=== PATIENT | male | born 1955 | race Caucasian/White ===

== ENCOUNTER 2021-02-18 02:35 | Day surgery (SDC) | payer MEDICARE, SELFPAY ==
[2021-02-04 13:48] VITALS: BMI 27.1
[2021-02-18 11:36] VITALS: BP 153/94; PULSE 76; RESP 18; TEMP 36.1; O2SAT 98
[2021-02-18] MEDS: LACTATED RINGERS 1,000 ML 150 ML IV CONT (11:40)
--- NOTE | 2021-02-18 12:30 | WPDGICN ---
Assessment and Plan Assessment and plan (1) Encounter for screening colonoscopy: Code(s): Z12.11 - Encounter for screening for malignant neoplasm of colon Status: Acute Assessment and Plan: Patient presents for screening colonoscopy. It has been 11 years since last exam. He appears to be at average risk for colon polyps. Further recommendations will be given after endoscopy. (2) Dyspepsia: Code(s): R10.13 - Epigastric pain Status: Acute Assessment and Plan: Patient complains of indigestion after drinking peers. Consistent with acid indigestion. Plan is for a trial of Pepcid or Tagamet on a regular basis. If symptoms persist despite this medication in follow-up for EGD is advised. GI Consult Note Consult date/time: 02/18/21 12:30 HPI: Adriel Viera is a 66 year old male Presents for screening colonoscopy. Patient's current weight appetite bowel movements are normal. He denies abdominal pain. He has had no bleeding. Family history is noncontributory last colonoscopy was 11 years ago. Patient presents today for follow-up screening colonoscopy. Patient does report occasional left upper quadrant indigestion after drinking beers. He has tried no medications for this this only occurs intermittently. He has had no weight loss or bleeding. Review of Systems Review of Systems: All systems reviewed & are unremarkable except as noted in HPI and below PMFSH Social History Social History Smoking status: Never smoker Alcohol intake: current Drinks per week: 10 Living arrangements: with family Spiritual care concerns: No Meds Home Medications and Allergies Home Medications Medication Instructions Recorded Confirmed Type aspirin [Adult Low Dose Aspirin] 81 mg PO DAILY 02/04/21 02/18/21 History cholecalciferol (vitamin D3) 25 mcg PO DAILY 02/04/21 02/18/21 History [Vitamin D3] hydrochlorothiazide 25 mg PO DAILY 02/04/21 02/18/21 History lisinopril 40 mg PO DAILY 02/04/21 02/18/21 History metoprolol succinate 50 mg PO DAILY 02/04/21 02/18/21 History omega-3 fatty acids [Fish Oil] 1,000 mg PO DAILY 02/04/21 02/18/21 History omeprazole 40 mg PO DAILY PRN 02/04/21 02/18/21 History simvastatin 40 mg PO DAILY 02/04/21 02/18/21 History vitamin E 100 unit PO DAILY 02/04/21 02/18/21 History Allergies Allergy/AdvReac Type Severity Reaction Status Date / Time No Known Allergies Allergy Unverified 02/18/21 11:35 Vital Signs Vital Signs - 24 hr 02/18/21 11:36 Temperature 96.9 F L Pulse Rate 76 Respiratory Rate 18 Blood Pressure 153/94 H Pulse Oximetry 98 Exam Narrative: Physical exam reveals patient be alert. Vital signs stable. HEENT exam is unremarkable. Patient is anicteric. Lungs are clear to auscultation and percussion. Heart is without murmur or extra sounds. Abdominal exam bowel sounds are present soft nontender with no hepatosplenomegaly. Digital external rectal exam is normal.
--- NOTE | 2021-02-18 12:50 | WPDANESEPPF ---
Anes - Initial Pre Proc Eval Procedure: Operation Date: 02/18/21 13:00 Proposed Procedures p Screening Colonoscopy - Malik Riddle MD Date/Time: 02/18/21 12:50 Surgeon: Malik Riddle MD Pre Op Diagnosis: neoplasm screening Patient Data Age: 66 Gender: M Height: 1.83 m Weight: 98.9 kg Last Vital Signs Temp 96.9 F L 02/18/21 11:36 Pulse 76 02/18/21 11:36 Resp 18 02/18/21 11:36 BP 153/94 H 02/18/21 11:36 Pulse Ox 98 02/18/21 11:36 Allergies Allergy/AdvReac Type Severity Reaction Status Date / Time No Known Allergies Allergy Unverified 02/18/21 11:35 Home Medications Medication Instructions Recorded Confirmed Type aspirin [Adult Low Dose Aspirin] 81 mg PO DAILY 02/04/21 02/18/21 History cholecalciferol (vitamin D3) 25 mcg PO DAILY 02/04/21 02/18/21 History [Vitamin D3] hydrochlorothiazide 25 mg PO DAILY 02/04/21 02/18/21 History lisinopril 40 mg PO DAILY 02/04/21 02/18/21 History metoprolol succinate 50 mg PO DAILY 02/04/21 02/18/21 History omega-3 fatty acids [Fish Oil] 1,000 mg PO DAILY 02/04/21 02/18/21 History omeprazole 40 mg PO DAILY PRN 02/04/21 02/18/21 History simvastatin 40 mg PO DAILY 02/04/21 02/18/21 History vitamin E 100 unit PO DAILY 02/04/21 02/18/21 History Patient hx anesthesia problems: none Family hx anesthesia problems: none Results Review: All pre-operative results and documents have been reviewed as part of the pre-operative evaluation. [facility] Past Medical History Medical History (Updated 02/18/21 @ 12:47 by Rodger Whitehead MD) GERD (gastroesophageal reflux disease) Hyperlipidemia Hypertension Social History Social History Smoking status: Never smoker Alcohol intake: current Drinks per week: 10 Living arrangements: with family Spiritual care concerns: No Anes - Eval Final PreProcedure Day of Procedure 02/18/21 12:50 Patient weight: overweight Heart: regular rate and rhythm Lungs: clear to auscultation Airway: Mallampati scale class II Neurological: alert and oriented Last oral intake: >/= 8 hours ASA classification: II Emergent: no Anesthetic plan: proceed Anesthesia type and monitoring: general GIVS and standard monitoring Results Review: All pre-operative results and documents have been reviewed as part of the pre-operative evaluation. Informed Consent: The patient's anesthetic plan and its attendant risks and benefits were discussed with the patient/family/POA. Questions were solicited and answers provided to the satisfaction of the patient/family/POA.
[2021-02-18 13:36] VITALS: BP 122/77; PULSE 69; RESP 15; O2SAT 95
[2021-02-18 13:46] VITALS: BP 127/77; PULSE 74; RESP 18; O2SAT 100
[2021-02-18 13:56] VITALS: BP 124/76; PULSE 64; RESP 19; O2SAT 100
== END 2021-02-18 13:58 | disposition home or self-care (01) ==
PROVIDERS: PCP Internal Medicine Geriatric Medicine; Visit Provider Internal Medicine Gastroenterology
PROC: 0DJD8ZZ Inspection of Lower Intestinal Tract, Via Natural or Artificial Opening Endoscopic (ICD-10-PCS; CPT 45378; principal; 2021-02-18 13:00)
DX: Z12.11 Encounter for screening for malignant neoplasm of colon (principal); D12.2 Benign neoplasm of ascending colon; D12.3 Benign neoplasm of transverse colon; K64.8 Other hemorrhoids; K21.9 Gastro-esophageal reflux disease without esophagitis; I10 Essential (primary) hypertension; E78.5 Hyperlipidemia, unspecified; Z79.82 Long term (current) use of aspirin
CPT/HCPCS: 45385; 88305; J2704; J7120

== ENCOUNTER 2021-11-26 10:26 | Emergency (ER) | payer MEDICARE, SELFPAY ==
[2021-11-26] VITALS (9 sets, daily range): BP systolic 140–163; BP diastolic 62–101; PULSE 54–63; RESP 12–16; TEMP 36.4; O2SAT 96
--- NOTE | ~2021-11-26 | XR_ITS ---
EXAMINATION: XR chest 2V DATE: 11/26/2021 10:52 INDICATION: Chest pain TECHNIQUE: PA and lateral views of the chest are obtained. COMPARISON: None available FINDINGS: The lungs are free of acute opacities. No pleural effusion or pneumothorax. The cardiomedia stinal silhouette is normal. There is mild thoracic spondylosis. IMPRESSION: 1. No acute cardiopulmonary abnormality. Reviewed, dictated and finalized at location B.
--- NOTE | 2021-11-26 10:27 | ECG_ITS ---
Measurements Intervals [place] Rate: 66 P: 24 UT: 161 QRS: -46 QRSD: 136 T: 13 QT: 388 QTc: 407 Interpretive Statements SINUS RHYTHM RIGHT BUNDLE BRANCH BLOCK LEFT ANTERIOR FASCICULAR BLOCK ABNORMAL ECG COMPARED TO ECG 05/27/2018 09:04:48 RIGHT BUNDLE-BRANCH BLOCK NOW PRESENT LEFT ANTERIOR FASCICULAR BLOCK NOW PRESENT LEFT VENTRICULAR HYPERTROPHY NOW PRESENT Electronically Signed On 11-26-2021 12:40:49 CDT by Jeremias Galan D.O.
[2021-11-26 10:50] LABS: Basophils Absolute Auto 0.1 K/mm3 (0.0-0.1); Basophils Percent Auto 0.7 % (0.2-1.2); Eosinophils Absolute Auto 0.1 K/mm3 (0-0.3); Eosinophils Percent Auto 1.7 % (0-4.4); Hematocrit 43.6 % (42.0-52.0); Hemoglobin 14.7 g/dL (14.0-18.0); Immature Granulocyte Absolute 0.03 K/mm3 (0.00-0.031); Immature Granulocyte Percent A 0.4 % (0-0.5); Lymphocytes Absolute Auto 2.38 K/mm3 (0.9-3.2); Lymphocytes Percent Auto 33.1 % (18.3-44.2); Mean Corpuscular HGB Conc 33.7 g/dl (32-36); Mean Corpuscular Hemoglobin 31.5 pg (26-34); Mean Corpuscular Volume 93.6 fl (80-100); Mean Platelet Volume 9.3 fl (7.4-10.4); Monocytes Absolute Auto 0.7 K/mm3 (0.1-0.6); Monocytes Percent Auto 9.6 % (2.6-8.5); Neutrophils Absolute Auto 3.9 K/mm3 (1.3-6.7); Neutrophils Percent Auto 54.5 % (45.5-73.1); Platelet Count Result 237 k/mm3 (150-375); Red Blood Count 4.66 M/mm3 (4.6-6.20); Red Cell Distribution Width 12.3 % (11.5-14.5); White Blood Count 7.2 K/mm3 (4.5-10.0)
[2021-11-26 10:55] LABS: INR 1.1; Prothrombin Time 13.3 Seconds (11.1-14.7)
[2021-11-26 10:56] LABS: Partial Thromboplastin Time 27.5 SECONDS (22.3-36.8)
[2021-11-26 10:58] LABS: Alanine Aminotransferase 30 U/L (6-50); Albumin Level 4.8 g/dL (3.5-5.1); Alkaline Phosphatase 57 U/L (38-126); Anion Gap 5 mmol/L (8-16); Aspartate Amino Transferase 28 U/L (17-59); Bilirubin,Total 1.3 mg/dL (0.2-1.3); Blood Urea Nitrogen 12 mg/dL (9-20); Calcium 9.1 mg/dL (8.4-10.2); Carbon Dioxide 23 mmol/L (22-30); Chloride 110 mmol/L (98-107); Estimated CRCL calculation 76 ml/min; Estimated Glomerular Filt Rate > 60; Glucose 112 mg/dL (65-110); Lipase 75 U/L (23-300); Potassium 4.1 mmol/L (3.4-5.0); Sodium 138 mmol/L (137-145)
[2021-11-26 11:08] LABS: Troponin I < 0.012 ng/mL (0.000-0.034)
--- NOTE | 2021-11-26 12:04 | ED.CHESTPAIN ---
HPI - Chest Pain General Chief Complaint: Chest Pain Stated Complaint: chest pain Time Seen by Provider: 11/26/21 12:04 History of Present Illness HPI narrative: Patient is a 66-year-old male with a history of hypertension, hyperlipidemia, GERD presenting with epigastric pain. Patient states that for the last several months he has had epigastric pain that sometimes radiates into his chest and into his back. States that he notices it is often worse in the morning and improves after he takes his morning walk. States it also improves with eating though certain foods, like coffee and beer, make it worse. States he has been taking his Prilosec as prescribed. States that he called his doctor today because his has been on him to get this checked out and his doctor recommended he come in for evaluation. Currently, he denies any complaint. He denies current chest pain. He denies shortness of breath, palpitations, lightheadedness, leg swelling. He denies headaches, fevers, cough, numbness or weakness, nausea or vomiting, diarrhea, dysuria. Related Data Home Medications Medication Instructions Recorded Confirmed aspirin 81 mg tablet 81 mg PO DAILY 02/04/21 02/18/21 cholecalciferol (vitamin D3) 25 25 mcg PO DAILY 02/04/21 02/18/21 mcg (1,000 unit) tablet (Vitamin D3) hydrochlorothiazide 25 mg tablet 25 mg PO DAILY 02/04/21 02/18/21 lisinopril 40 mg tablet 40 mg PO DAILY 02/04/21 02/18/21 metoprolol succinate 50 mg 50 mg PO DAILY 02/04/21 02/18/21 tablet,extended release 24 hr omega-3 fatty acids 1,000 mg PO DAILY 02/04/21 02/18/21 omeprazole 40 mg capsule,delayed 40 mg PO DAILY PRN Indigestion 02/04/21 02/18/21 release simvastatin 40 mg tablet 40 mg PO DAILY 02/04/21 02/18/21 vitamin E 100 unit tablet 100 unit PO DAILY 02/04/21 02/18/21 Allergies Allergy/AdvReac Type Severity Reaction Status Date / Time No Known Allergies Allergy Unverified 11/26/21 10:38 Review of Systems Review of Systems: All systems reviewed & are unremarkable except as noted in HPI and below PMFSH Past Medical History Medical History GERD (gastroesophageal reflux disease) Hyperlipidemia Hypertension Social History Social History Smoking status: Never smoker Alcohol intake: current Drinks per week: 10 Spiritual care concerns: No Exam Narrative: GENERAL: Well-appearing, well-nourished, and in no acute distress. HEAD: Normocephalic, atraumatic. EYES: PERRLA and EOMI. ENT: Nares clear, no rhinorrhea or epistaxis. Mucous membranes moist. NECK: Supple. CHEST: Clear to auscultation. No respiratory distress. HEART: Regular rate and rhythm. No murmur heard. Normal peripheral pulses. ABDOMEN: Soft, nontender, nondistended, normal active bowel sounds. EXTREMITIES: Normal range of motion. No edema. SKIN: Warm, dry, no rash. NEURO: No focal deficits. Alert and oriented x3. PSYCH: Normal mood and affect. Course Course Emergency Course: Patient is a 66-year-old male with history as above presenting with intermittent epigastric pain. Patient is hypertensive, otherwise vitals are within normal limits. Patient is well-appearing and in no acute distress. Exam is unremarkable. History sounds very GI in nature given the several month history, intermittent nature of the symptoms related to food intake. EKG per my interpretation shows normal sinus rhythm, left axis deviation, right bundle branch block, no ST elevations or depressions. Labs are unremarkable. Initial troponin is undetectable. Chest x-ray shows no acute abnormalities. 3-hour troponin is also undetectable. Patient continues to feel well. Patient has a heart score of 5 given his age and risk factors but this current episode sounds GI in nature and his lab work is reassuring. He actually denies any chest pain or shortness of breath and states that activity imp
[2021-11-26 13:41] LABS: Troponin I < 0.012 ng/mL (0.000-0.034)
== END 2021-11-26 15:02 | disposition home or self-care (01) ==
PROVIDERS: Emergency Medicine; Emergency Provider Emergency Medicine; PCP Internal Medicine Geriatric Medicine
DX: R10.13 Epigastric pain (principal); K21.9 Gastro-esophageal reflux disease without esophagitis; I10 Essential (primary) hypertension; E78.5 Hyperlipidemia, unspecified; Z79.82 Long term (current) use of aspirin
CPT/HCPCS: 36415; 71046; 80053; 83690; 84484; 85025; 85610; 85730; 93005; 99284

== ENCOUNTER 2023-06-03 04:51 | Emergency (ER) | payer MEDICARE, SELFPAY ==
--- NOTE | ~2023-06-03 | XR_ITS ---
Portable chest x-ray Comparison: 11/26/2021 Clinical History: Chest pain Findings: Lungs are clear, without focal consolidation or pleural effusion. Possible COPD. Cardiome diastinal silhouette is stable. Bones and soft tissues are unremarkable. Impression: Clear lungs. Possible COPD. Reviewed, dictated and finalized at location . Impression: Clear lungs. Possible COPD.
--- NOTE | 2023-06-03 04:52 | ECG_ITS ---
Measurements Intervals [place] Rate: 74 P: 39 [place]: 164 QRS: -49 QRSD: 134 T: 27 QT: 385 QTc: 427 Interpretive Statements SINUS RHYTHM WITH OCCASIONAL VENTRICULAR PREMATURE COMPLEXES RIGHT BUNDLE BRANCH BLOCK LEFT ANTERIOR FASCICULAR BLOCK VOLTAGE CRITERIA FOR LVH CANNOT RULE OUT SEPTAL INFARCT, AGE INDETERMINATE BASELINE ARTIFACT- I, II, AVR, V2-V3 ABNORMAL ECG COMPARED TO ECG 11/26/2021 10:33:11 NO SIGNIFICANT CHANGES Electronically Signed On 06-03-2023 6:25:34 CDT by Jeremias Galan D.O.
[2023-06-03 04:54] VITALS: BP 150/98; PULSE 77; RESP 16; TEMP 36.7; O2SAT 97
[2023-06-03 05:02] VITALS: O2SAT 97
[2023-06-03 05:08] LABS: Basophils Absolute Auto 0.1 K/mm3 (0.0-0.1); Basophils Percent Auto 0.7 % (0.2-1.2); Eosinophils Absolute Auto 0.2 K/mm3 (0-0.3); Hematocrit 46.8 % (42.0-52.0); Hemoglobin 15.9 g/dL (14.0-18.0); Immature Granulocyte Absolute 0.02 K/mm3 (0.00-0.031); Immature Granulocyte Percent A 0.2 % (0-0.5); Lymphocytes Absolute Auto 3.78 K/mm3 (0.9-3.2); Lymphocytes Percent Auto 42.6 % (18.3-44.2); Mean Corpuscular Hemoglobin 31.4 pg (26-34); Mean Corpuscular Volume 92.3 fl (80-100); Mean Platelet Volume 9.3 fl (7.4-10.4); Monocytes Percent Auto 10.9 % (2.6-8.5); Neutrophils Absolute Auto 3.9 K/mm3 (1.3-6.7); Neutrophils Percent Auto 43.6 % (45.5-73.1); Platelet Count Result 239 k/mm3 (150-375); Red Blood Count 5.07 M/mm3 (4.6-6.20); White Blood Count 8.9 K/mm3 (4.5-10.0)
[2023-06-03] MEDS: ASPIRIN 81 MG CHEWABLE TABLET 324 MG PO (05:08)
--- NOTE | 2023-06-03 05:08 | ED.GENADULT ---
HPI - General Adult General Chief complaint: Chest Pain Stated complaint: chest pain Time Seen by Provider: 06/03/23 05:07 History of Present Illness HPI narrative: this is a 68-year-old male history of hypertension high cholesterol presenting for chest discomfort x1 month. Patient says he has been having a stabbing pain beneath his left pectoral that radiates up into his left chest neck and back for the last 1 month. It comes and goes up to 10 times per day and typically last 20 minutes at a time. It is improved by distraction. There is no exertional component. He can reproduce the pain when he moves. patient came to the ER because he was having pain that was worse than usual that radiated to his back and he had some numbness in his left hand when he woke. The numbness has since resolved. Patient denies fever chills shortness of breath abdominal pain, exertional component or vomiting. No lower extremity edema. Related Data Home Medications Medication Instructions Recorded Confirmed aspirin 81 mg tablet 81 mg PO DAILY 02/04/21 02/18/21 cholecalciferol (vitamin D3) 25 25 mcg PO DAILY 02/04/21 02/18/21 mcg (1,000 unit) tablet (Vitamin D3) hydrochlorothiazide 25 mg tablet 25 mg PO DAILY 02/04/21 02/18/21 lisinopril 40 mg tablet 40 mg PO DAILY 02/04/21 02/18/21 metoprolol succinate 50 mg 50 mg PO DAILY 02/04/21 02/18/21 tablet,extended release 24 hr omega-3 fatty acids 1,000 mg PO DAILY 02/04/21 02/18/21 omeprazole 40 mg capsule,delayed 40 mg PO DAILY PRN Indigestion 02/04/21 02/18/21 release simvastatin 40 mg tablet 40 mg PO DAILY 02/04/21 02/18/21 vitamin E 100 unit tablet 100 unit PO DAILY 02/04/21 02/18/21 Allergies Allergy/AdvReac Type Severity Reaction Status Date / Time No Known Allergies Allergy Verified 06/03/23 05:21 [facility] Past Medical History Medical History GERD (gastroesophageal reflux disease) Hyperlipidemia Hypertension Social History Social History Smoking status: Never smoker Alcohol intake: current Drinks per week: 10 Living arrangements: with family Spiritual care concerns: No Exam Narrative: APPEARANCE: No apparent distress. Head: atraumatic. EYES: EOMI, NOSE: Atraumatic NECK: Trachea midline RESPIRATORY: No increased rate of breathing, clear to auscultatio CARDIOVASCULAR: RRR, no peripheral edema ABDOMINAL: Non-distended soft nontender no guarding rebound MUSCULOSKELETAl: no overlying skin changes of her chest her back, no tenderness on palpation NEURO: Alert. Moving 4/4 extremities SKIN:: Warm, dry. Normal color PSYCHIATRIC: Normal affect Course Vital Signs Vital signs: Vital Signs Temperature 98.1 F 06/03/23 04:54 Pulse Rate 77 06/03/23 04:54 Respiratory Rate 16 06/03/23 04:54 Blood Pressure 150/98 H 06/03/23 04:54 Pulse Oximetry 97 06/03/23 04:54 Oxygen Delivery Room Air 06/03/23 04:54 Temperature 98.1 F 06/03/23 04:54 Pulse Rate 74 06/03/23 05:20 Respiratory Rate 12 06/03/23 05:20 Blood Pressure 136/81 06/03/23 05:20 Pulse Oximetry 95 06/03/23 05:20 Oxygen Delivery Room Air 06/03/23 05:02 Medical Decision Making MDM Narrative Medical decision making narrative: -Course: 68-year-old male presenting with intermittent chest pain x1 month. Patient is able to reproduce the pain with specific movements. Chest pain workup was negative with 2 undetectable troponins and normal EKG. Patient pain started to resolve once he arrived in the emergency department and is pain-free at time of discharge. Patient did receive nitro but his pain had already improved by time he received it. Unlikely that this is cardiac pain. The patient will be discharged with primary care follow-up return precautions. -DDX includes but is not limited to: ACS, musculoskeletal pain, pleurisy, PE, pneumonia -Co-morbidit
[2023-06-03 05:16] VITALS: BP 134/82; PULSE 73; RESP 13; O2SAT 96
[2023-06-03] MEDS: NITROGLYCERIN SL 0.4 MG TABLET SUBLINGUAL (05:17)
[2023-06-03 05:20] VITALS: BP 136/81; PULSE 74; RESP 12; O2SAT 95
[2023-06-03 05:21] LABS: Prothrombin Time 13.2 Seconds (11.1-14.7)
[2023-06-03 05:22] LABS: Partial Thromboplastin Time 28.4 Seconds (22.3-36.8)
[2023-06-03 05:24] LABS: Alanine Aminotransferase 31 U/L (6-50); Albumin Level 4.5 g/dL (3.5-5.1); Alkaline Phosphatase 66 U/L (38-126); Anion Gap 7 mmol/L (8-16); Aspartate Amino Transferase 30 U/L (17-59); Blood Urea Nitrogen 21 mg/dL (9-20); Calcium 9.4 mg/dL (8.4-10.2); Carbon Dioxide 25 mmol/L (22-30); Chloride 103 mmol/L (98-107); Estimated CRCL calculation 43 ml/min; Estimated Glomerular Filt Rate > 60; Glucose 148 mg/dL (65-110); Lipase 142 U/L (23-300); Sodium 135 mmol/L (137-145)
[2023-06-03 05:36] LABS: Troponin I < 0.012 ng/mL (0.000-0.034)
--- NOTE | 2023-06-03 05:47 | PC.NURSE ---
This RN added on BNP and d-dimer in lab. Spoke to Amy.
[2023-06-03 06:03] LABS: NT Pro B Type Natriuretic Pept < 20 pg/mL (19.9-100)
[2023-06-03 06:31] LABS: D Dimer 0.36 ug/mL (<0.48)
[2023-06-03 07:01] VITALS: BP 138/85; PULSE 71; RESP 16; O2SAT 95
== END 2023-06-03 07:03 | disposition home or self-care (01) ==
PROVIDERS: Emergency Provider Emergency Medicine; PCP Internal Medicine Geriatric Medicine
DX: R07.89 Other chest pain (principal); E78.00 Pure hypercholesterolemia, unspecified; I10 Essential (primary) hypertension; K21.9 Gastro-esophageal reflux disease without esophagitis; Z79.82 Long term (current) use of aspirin
CPT/HCPCS: 36415; 71045; 80053; 83690; 83880; 84484; 85025; 85380; 85610; 85730; 93005; 99284; A9270

== ENCOUNTER 2023-10-04 07:35 | Outpatient (CLI) | payer MEDICARE, SELFPAY ==
--- NOTE | ~2023-10-04 | US_ITS ---
Duplex Carotid Doppler 10/04/2023 8:15 CDT Ordering provider: Freddy HanleyMD INDICATION: 68 years Male presents with . carotid Bruit . COMPARISON: None TECHNIQUE: Duplex carotid ultrasound was obtained with spectral analysis. FINDINGS: Right carotid: The right common carotid artery is patent. The right common carotid artery peak systo lic velocity is 97.7 cm/sec. Mild atherosclerotic plaque at the right carotid bulb. Peak systolic v elocity in the right internal carotid artery is 84.5 cm/sec. The end diastolic velocity EDV of the ri ght internal carotid artery is 33.9. The ICA/CCA ratio is 0.9. External carotid artery PSV is 116.7 T he right vertebral artery flow is antegrade. Vertebral PSV is 55.9 cm/s. Left carotid: The left common carotid artery is patent. The left common carotid artery peak systolic velocity is 76 cm/sec. Mild atherosclerotic plaque at the left carotid bulb. Peak systolic velocit y in the left internal carotid artery is 77.2 cm/sec. ICA EDV areas 29.3 cm/s. ECA PSV is 94.4 cm/S. The ICA/CCA ratio is 1. The left vertebral artery is antegrade. PSV of vertebral artery is 39.6 IMPRESSION: 1. Minimal atherosclerotic changes in the bulb bilaterally. No significant stenosis seen. 2. Antegrade flow in the bilateral vertebral arteries. Reviewed, dictated and finalized at location A. IMPRESSION: 1. Minimal atherosclerotic changes in the bulb bilaterally. No significant sten osis seen. 2. Antegrade flow in the bilateral vertebral arteries.
--- NOTE | ~2023-10-04 | US_ITS ---
EXAMINATION: US aorta [facility] DATE: 10/04/2023 08:40 INDICATION: Abdominal aortic aneurysm screening TECHNIQUE: Grayscale, color Doppler, and pulsed Doppler images of the aorta and common iliac arteries were obtained. COMPARISON: None. FINDINGS: The proximal aorta measures 2.9. The mid aorta measures 2.1. The distal aorta measures 1.9. The right common iliac artery measures 1.3. The left common iliac artery measures 1.3. IMPRESSION: 1. Normal caliber abdominal aorta Reviewed, dictated and finalized at location A.
== END 2023-10-04 07:36 | disposition home or self-care (01) ==
PROVIDERS: PCP Internal Medicine Geriatric Medicine; Visit Provider Internal Medicine Geriatric Medicine
DX: R09.89 Other specified symptoms and signs involving the circulatory and respiratory systems (principal); Z13.6 Encounter for screening for cardiovascular disorders
CPT/HCPCS: 76706; 93880

== ENCOUNTER 2023-12-13 01:32 | Emergency (ER) | payer MEDICARE, SELFPAY ==
--- NOTE | ~2023-12-13 | CT_ITS ---
Clinical Indication: Chest pain, abdominal pain CT Scan of the Chest, Abdomen, and Pelvis with Contrast: Technique: Contiguous sections were acquired throughout the chest, abdomen, and pelvis after intraven ous administration of 100 cc of Omnipaque 350. Dose reduction technique was used on this scan by petar cortes automated exposure control and iterative reconstruction technique. The dose-length product (DL P) was 1845.97 mGy-cm. Findings: There is no evidence of any significant mediastinal, hilar or axillary lymphadenopathy. The mediastin al soft tissues appear normal. No pulmonary embolus. No aortic aneurysm or dissection. There is no evidence of pleural or pericardial effusion. The lungs are clear. No pulmonary nodules or infiltrates are noted. The liver, spleen, pancreas, adrenals and kidneys are within normal limits. Cholecystectomy clips are present. There are atherosclerotic calcifications of the aorta. There is a single prominent, enhanci ng lymph node just anterior to the IVC measuring 14 mm in short axis (series 5 axial image 97), nonsp ecific.. No bowel obstruction or bowel wall thickening. There is no evidence to suggest acute appendicitis. Urinary bladder is unremarkable. No pelvic mass seen. No ascites. Fat-containing left inguinal hernia noted. Impression: Single mildly prominent lymph node just anterior to the IVC, as above, nonspecific. Fat-containing left inguinal hernia. No other significant findings. Reviewed, dictated and finalized at [facility]. Impression: Single mildly prominent lymph node just anterior to the IVC, as above, nonspeci fic. Fat-containing left inguinal hernia. No other significant findings.
[2023-12-13 01:33] VITALS: BP 151/80; PULSE 78; RESP 17; TEMP 36.6; O2SAT 97
--- NOTE | 2023-12-13 02:14 | ECG_ITS ---
Test Date: 2023-12-13 02:28:45 Measurements Intervals [place] Rate: 73 P: 20 SC: 170 QRS: -49 QRSD: 134 T: 27 QT: 376 QTc: 416 Interpretive Statements SINUS RHYTHM RIGHT BUNDLE BRANCH BLOCK LEFT ANTERIOR FASCICULAR BLOCK VOLTAGE CRITERIA FOR LVH CANNOT R/O SEPTAL INFARCT, AGE INDETERMINATE BASELINE ARTIFACT- I, II, III, AVR, AVL, AVF, V1 ABNORMAL ECG No previous ECG available for comparison Electronically Signed On 12-13-2023 06:26:09 CDT by Jeremias Galan D.O.
[2023-12-13 02:32] LABS: Basophils Absolute Auto 0.1 K/mm3 (0.0-0.1); Eosinophils Absolute Auto 0.2 K/mm3 (0-0.3); Eosinophils Percent Auto 3.4 % (0-4.4); Hematocrit 43.5 % (42.0-52.0); Hemoglobin 14.9 g/dL (14.0-18.0); Immature Granulocyte Absolute 0.01 K/mm3 (0.00-0.031); Immature Granulocyte Percent A 0.1 % (0-0.5); Lymphocytes Absolute Auto 2.55 K/mm3 (0.9-3.2); Lymphocytes Percent Auto 37.2 % (18.3-44.2); Mean Corpuscular HGB Conc 34.3 g/dl (32-36); Mean Corpuscular Hemoglobin 31.5 pg (26-34); Mean Platelet Volume 9.4 fl (7.4-10.4); Monocytes Absolute Auto 0.7 K/mm3 (0.1-0.6); Monocytes Percent Auto 10.2 % (2.6-8.5); Neutrophils Absolute Auto 3.3 K/mm3 (1.3-6.7); Neutrophils Percent Auto 48.1 % (45.5-73.1); Platelet Count Result 208 k/mm3 (150-375); Red Blood Count 4.73 M/mm3 (4.6-6.20); Red Cell Distribution Width 12.2 % (11.5-14.5); White Blood Count 6.9 K/mm3 (4.5-10.0)
[2023-12-13 02:43] LABS: Alanine Aminotransferase 30 U/L (6-50); Albumin Level 4.4 g/dL (3.5-5.1); Alkaline Phosphatase 63 U/L (38-126); Anion Gap 11 mmol/L (4-12); Aspartate Amino Transferase 30 U/L (17-59); Bilirubin,Total 0.8 mg/dL (0.2-1.3); Blood Urea Nitrogen 15 mg/dL (9-20); Calcium 9.4 mg/dL (8.4-10.2); Carbon Dioxide 21 mmol/L (22-30); Chloride 103 mmol/L (98-107); Estimated CRCL calculation 93 ml/min; Estimated Glomerular Filt Rate > 60; Glucose 151 mg/dL (65-110); Potassium 4.2 mmol/L (3.4-5.0); Sodium 135 mmol/L (137-145)
[2023-12-13] MEDS: MORPHINE SULFATE (*CRX) 4 MG/ML INJ IV PUSH (02:43)
[2023-12-13 02:53] LABS: Add Urine Microscopic? NO; Appearance Urine Clear (Clear); Bilirubin Urine Negative (Negative); Blood Urine Negative (Negative); Color Urine Yellow (Yellow); Glucose Urine UA Negative (Negative); Ketones Urine Negative (Negative); Leukocyte Esterase Ur Negative LEU/UL (Negative); Nitrate Urine Negative (Negative); Protein Urine Negative (Negative); Specific Grav Ur 1.015 (1.001-1.035)
[2023-12-13 02:55] LABS: NT Pro B Type Natriuretic Pept 45 pg/mL (19.9-100); Troponin I 0.027 ng/mL (0.000-0.034)
--- NOTE | 2023-12-13 03:32 | ED.GENADULT ---
HPI - General Adult General Chief complaint: Back Pain/Injury Stated complaint: right flank pain Time Seen by Provider: 12/13/23 01:49 History of Present Illness HPI narrative: Patient is 68-year-old gentleman who presents emergency department with chief complaint of right flank pain. Patient reports that he has pain in his right flank area radiating into his right upper quadrant/low chest. The patient reports pain is worse with inspiration reports worse with movement. The patient reports no trauma denies fever reports that he has had a cholecystectomy before Related Data Home Medications Medication Instructions Recorded Confirmed aspirin 81 mg tablet 81 mg PO DAILY 02/04/21 02/18/21 cholecalciferol (vitamin D3) 25 25 mcg PO DAILY 02/04/21 02/18/21 mcg (1,000 unit) tablet (Vitamin D3) hydrochlorothiazide 25 mg tablet 25 mg PO DAILY 02/04/21 02/18/21 lisinopril 40 mg tablet 40 mg PO DAILY 02/04/21 02/18/21 metoprolol succinate 50 mg 50 mg PO DAILY 02/04/21 02/18/21 tablet,extended release 24 hr omega-3 fatty acids 1,000 mg PO DAILY 02/04/21 02/18/21 omeprazole 40 mg capsule,delayed 40 mg PO DAILY PRN Indigestion 02/04/21 02/18/21 release simvastatin 40 mg tablet 40 mg PO DAILY 02/04/21 02/18/21 vitamin E 100 unit tablet 100 unit PO DAILY 02/04/21 02/18/21 Allergies Allergy/AdvReac Type Severity Reaction Status Date / Time No Known Allergies Allergy Verified 12/13/23 01:35 Review of Systems Review of Systems: A 10 system review of systems was completed on the patient and is negative except for what is stated in the HPI. Nursing and ancillary documentation was reviewed. PMFSH Past Medical History Medical History GERD (gastroesophageal reflux disease) Hyperlipidemia Hypertension Social History Social History Smoking status: Never smoker Alcohol intake: current Drinks per week: 10 Living arrangements: with family Spiritual care concerns: No Exam Narrative: GENERAL: Well-appearing, well-nourished, and in no acute distress. HEAD: Normocephalic, atraumatic. EYES: PERRLA and EOMI. ENT: Nares clear, no rhinorrhea or epistaxis. Mucous membranes moist. NECK: Supple. CHEST: Clear to auscultation. No respiratory distress. HEART: Regular rate and rhythm. No murmur heard. Normal peripheral pulses. ABDOMEN: Soft, nontender, nondistended, normal active bowel sounds. EXTREMITIES: Normal range of motion. No edema. SKIN: Warm, dry, no rash. NEURO: No focal deficits. Alert and oriented x3. PSYCH: Normal mood and affect. Course Vital Signs Vital signs: Vital Signs Temperature 36.6 C 12/13/23 01:33 Pulse Rate 78 12/13/23 01:33 Respiratory Rate 17 12/13/23 01:33 Blood Pressure 151/80 H 12/13/23 01:33 Pulse Oximetry 97 12/13/23 01:33 Oxygen Delivery Room Air 12/13/23 01:33 Temperature 36.6 C 12/13/23 01:33 Pulse Rate 66 12/13/23 04:05 Respiratory Rate 18 12/13/23 04:05 Blood Pressure 154/84 H 12/13/23 04:05 Pulse Oximetry 96 12/13/23 04:05 Oxygen Delivery Room Air 12/13/23 01:33 Medical Decision Making MDM Narrative Medical decision making narrative: Differential diagnosis includes pulmonary embolism, intra-abdominal infection, pancreatitis, ureterolithiasis, pyelonephritis Laboratory studies were obtained on the patient showed normal CBC normal CMP troponin was 0.027 BNP was negative CTA chest with abdomen pelvis CT showed no acute abnormality Repeat troponin was 0.022 Patient is feeling much better after receiving Toradol and norflex The patient discharged home on diclofenac and norflex. Vital Signs Vital Signs: Vital Signs Temperature 36.6 C 12/13/23 01:33 Pulse Rate 78 12/13/23 01:33 Respiratory Rate 17 12/13/23 01:33 Blood Pressure 151/80 H 12/13/23 01:33 Pulse Oximetry 97
[2023-12-13 04:05] VITALS: BP 154/84; PULSE 66; RESP 18; O2SAT 96
[2023-12-13 04:17] VITALS: BP 145/94; PULSE 65; RESP 12; O2SAT 95
[2023-12-13] MEDS: KETOROLAC 15 MG/ML VIAL (*BKC) IV PUSH (04:17)
[2023-12-13] MEDS: ASPIRIN 81 MG CHEWABLE TABLET 324 MG PO (04:17)
[2023-12-13] MEDS: ORPHENADRINE CITRATE 100 MG TABLET.ER PO (04:18)
[2023-12-13 05:02] VITALS: BP 150/89; PULSE 60; RESP 18; O2SAT 94
--- NOTE | 2023-12-13 05:07 | ECG_ITS ---
Test Date: 2023-12-13 05:12:45 Measurements Intervals [place] Rate: 57 P: 27 CT: 178 QRS: -41 QRSD: 133 T: -15 QT: 406 QTc: 397 Interpretive Statements SINUS BRADYCARDIA LEFT AXIS DEVIATION RIGHT BUNDLE BRANCH BLOCK VOLTAGE CRITERIA FOR LVH ST-T WAVE ABNORMALITY IN INFERIOR LEADS- CONSIDER ISCHEMIA BASELINE ARTIFACT- I, II, III, AVR, AVL, AVF, V1, V4-V6 ABNORMAL ECG Compared to ECG 12/13/2023 02:28:45 HEART RATE HAS DECREASED ST-T WAVE ABNORMALITY, CONSIDER ISCHEMIA NOW PRESENT Electronically Signed On 12-13-2023 06:32:02 CDT by Jeremias Galan D.O.
[2023-12-13 05:41] LABS: Troponin I 0.022 ng/mL (0.000-0.034)
[2023-12-13 05:47] VITALS: BP 149/83; PULSE 61; RESP 16; O2SAT 95
== END 2023-12-13 06:33 | disposition home or self-care (01) ==
PROVIDERS: Emergency Provider Emergency Medicine; PCP Internal Medicine Geriatric Medicine
DX: M54.9 Dorsalgia, unspecified (principal); I10 Essential (primary) hypertension; E78.5 Hyperlipidemia, unspecified; K21.9 Gastro-esophageal reflux disease without esophagitis; Z79.82 Long term (current) use of aspirin
CPT/HCPCS: 36415; 71275; 74177; 80053; 81003; 83880; 84484; 85025; 93005; 96374; 96375; 99284; A9270; J1885; J2270; Q9967

== ENCOUNTER 2025-03-08 06:48 | Outpatient (CLI) | payer MEDICARE, SELFPAY ==
--- NOTE | ~2025-03-08 | XR_ITS ---
EXAMINATION: XR hip LT min 2V DATE: 03/08/2025 07:03 INDICATION: Left hip TECHNIQUE: Left hip x-rays were obtained. COMPARISON: None. FINDINGS: Mild to moderate osteoarthritic degenerative changes in the left hip with no acute or aggressive bony or soft tissue process seen. IMPRESSION: 1. Degenerative changes with no acute or aggressive bony process seen. 2. For persisting hip pain refractory to conservative therapy, correlation with left hip MRI may provide additional beneficial information. Reviewed, dictated and finalized at location A. [employer]
== END 2025-03-08 06:49 | disposition home or self-care (01) ==
PROVIDERS: PCP Internal Medicine Geriatric Medicine; Visit Provider Internal Medicine Geriatric Medicine
DX: M16.12 Unilateral primary osteoarthritis, left hip (principal)
CPT/HCPCS: 73502